=== PATIENT | male | born 1985 | race Caucasian/White ===

== ENCOUNTER 2017-01-30 11:19 | Emergency (ER) | payer SELFPAY ==
[~2017-01-30] VITALS: Ht 172.7 cm; Wt 65.0 kg
[~2017-01-30 11:19] MED LIST: CLIN1CAP5 PO
[2017-01-30 11:21] VITALS: BP 114/77; PULSE 84; RESP 16; O2SAT 99
--- NOTE | 2017-01-30 11:34 | PD ---
HPI . dental pain for quite some time Chief Complaint: Oral / Dental Pain or Problem Time Seen by Provider: 11:34 Travel History International Travel<30 days: No Contact w/Intl Traveler<30days: No Traveled to known affect area: No History of Present Illness HPI 31-year-old male with recurrent tooth problems here with complaints of right upper wisdom tooth issues. Patient said this has been going on for quite some time. He says about a year and a half to 2 years ago he saw a dentist and unfortunately was too expensive for him to seek further dental care. He tells me the only time he comes to the emergency room his for his teeth. He is requesting treatment and tells me he needs a note for work. He denies any fever or chills. 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) Social History Alcohol Use: Yes Tobacco Use: Yes (1-2 PACKS/DAY) Substance Use: Yes Allergies-Medications (Allergen,Severity, Reaction): Coded Allergies: No Known Allergies (Verified , 01/30/17) Reported Meds & Prescriptions Reported Meds & Active Scripts Active Clindamycin Hcl (Clindamycin HCl) 150 Mg Cap 300 Mg PO Q6H 10 Days Review of Systems General / Constitutional: No: Fever Eyes: No: Visual changes HENT: Positive: Dental Difficulties, No: Headaches Cardiovascular: No: Chest Pain or Discomfort Respiratory: No: Shortness of Breath Gastrointestinal: No: Abdominal Pain Genitourinary: No: Dysuria Musculoskeletal: No: Pain Skin: No Rash Neurologic: No: Weakness Psychiatric: No: Depression Endocrine: No: Polydipsia Hematologic/Lymphatic: No: Easy Bruising Physical Exam Narrative GENERAL: AAO x 3, no acute distress, Well-nourished, well-developed patient. SKIN: Warm and dry. No visible rashes or bruising. HEAD: Normocephalic and atraumatic. EYES: No scleral icterus. No injection or drainage. ENT: No nasal drainage noted. Mucous membranes pink. Airway patent. #1 + signs of tooth decay without abscess formation or any inflammation of gums. no fluid collection. NECK: Supple, trachea midline. No JVD. no lymphadenopathy. CARDIOVASCULAR: Regular rate and rhythm without murmurs, gallops, or rubs. RESPIRATORY: Breath sounds equal bilaterally. No accessory muscle use. No rhonchi or rales. GASTROINTESTINAL: visual inspection is normal EXTREMITIES: No cyanosis or edema. BACK: Nontender without obvious deformity. No CVA tenderness. PSYCH: AAO x 3, normal affect. Data Data Last Documented VS Vital Signs Date Time Temp Pulse Resp B/P Pulse Ox O2 Delivery O2 Flow Rate FiO2 01/30/17 11:21 84 16 114/77 99 MDM Medical Decision Making Medical Screen Exam Complete: Yes Emergency Medical Condition: No Medical Record Reviewed: Yes Differential Diagnosis dentalgia, less likely oral abscess Narrative Course 31-year-old male with recurrent tooth problems here with complaints of right upper wisdom tooth issues. Patient said this has been going on for quite some time. He says about a year and a half to 2 years ago he saw a dentist and unfortunately was too expensive for him to seek further dental care. He tells me the only time he comes to the emergency room his for his teeth. He is requesting treatment and tells me he needs a note for work. He denies any fever or chills. patient given info for human services for dental extractions. A medical screening exam was performed: At the time of evaluation the presenting medical condition was determined not to be of an emergent nature. The patient was given the option of receiving additional care, but declined. Patient was given options for additional community resources from which to obtain care. The Patient Has Been advised to seek medical attention for their presenting complaint. The patient has been advised to return to the ER at any time if an emergent condition develops. Diagnosis Primary Impression: Encounter for medical screening examination Condition: Stable Tiana Cartagena January 30, 2017 11:34
== END 2017-01-30 12:19 | disposition left against medical advice (07) ==
LOC: NEPK 11:19
DX: K08.89 Other specified disorders of teeth and supporting structures (principal)
CPT/HCPCS: 99281